=== PATIENT | male | born 1950 | race Caucasian/White ===

== ENCOUNTER → 2016-12-25 | Outpatient (REF) | payer MEDICARE, OTHER ==
[~2016-12-25] MED LIST: /MOXI40TA PO; /TIOT18INH INH; /WARF5TA OR; AMBI10TA OR; ASPI325T OR; ASPI81TA83 OR; ATROVENT0.02% INH; CENTRUM SILVER PO; CRES20TA OR; IRONTAB3 PO; LOPR50TA OR; OMEP20TA7 OR; POTA75TA PO; PRED20TA OR; VENTAER INH; VICO5TAB OR
[2016-12-25 19:46] LABS: IMMUNOGLOBULIN A 84.7 MG/DL (70-400); IMMUNOGLOBULIN G 772 MG/DL (681-1648); IMMUNOGLOBULIN M 29.9 MG/DL (40-230); TOTAL PROTEIN 6.5 GM/DL (6.4-8.2)
[2016-12-25 19:59] LABS: REASON FOR REVIEW COMPREHENSIVE REVIEW
[2016-12-28 00:06] LABS: BETA 2 MICROGLOBULIN 3.2 mg/L (0.6-2.4); FREE KAPPA LIGHT CHAINS SERUM 30.1 mg/L (3.3-19.4); FREE LAMBDA LIGHT CHAINS SERUM 20.6 mg/L (5.7-26.3); KAPPA/LAMBDA RATIO SERUM 1.46 (0.26-1.65)
[2016-12-30 13:36] LABS: ALBUMIN % 50.1 % (55.8-66.1); GAMMA GLOBULIN % 11.4 % (11.1-18.8)
[2016-12-30 13:37] LABS: ALBUMIN 3.26 GM/DL (3.29-5.55)
== END ==
LOC: M LAB REF 17:34
PROVIDERS: ATTEND Internal Medicine Medical Oncology
DX: C83.30 Diffuse large B-cell lymphoma, unspecified site (principal)

== ENCOUNTER → 2017-01-06 | Outpatient (CLI) | payer MEDICARE, OTHER ==
[~2017-01-06] MED LIST changes: +GASTROGRAFIN SOLUTION 30ML (Q9963) As Ordered ONE; +ISOVUE-370 76% 100ML VIAL (Q9967) As Ordered ONE
== END ==
LOC: M RAD 12:27
PROVIDERS: ATTEND Internal Medicine Medical Oncology
DX: C85.10 Unspecified B-cell lymphoma, unspecified site (principal); Z53.9 Procedure and treatment not carried out, unspecified reason

== ENCOUNTER → 2017-01-14 | Outpatient (CLI) | payer MEDICARE, OTHER ==
--- NOTE | 2017-01-14 12:39 | REP ---
CT of the chest with IV contrast: Comparison 10/16/2010. On the prior study. There were areas of consolidation in the right upper lobe and in the lower lobes bilaterally. These have resolved. However, on the study today there is a mass anteriorly in the right lower lobe extending to the right hilus, not present previously, measuring 5 cm in diameter. There are small bilateral pleural effusions. These were also present previously. There is a new focal pleural-based ground-glass density posteriorly in the right upper lobe on image 41 measuring 17 mm, not present previously. The pleural thickening identified in the lung apices previously has increased bilaterally. There are multiple mediastinal nodes, all increased in size from the prior study. The largest increases in the subcarinal noah mass which today measures 3 cm short axis (previously 1.4 cm). There is bilateral hilar adenopathy. This has increased from the prior study. There are bilateral axillary lymph nodes, however, these do not appear enlarged. The thoracic aorta is unremarkable. Cardiac size is normal. There is no pericardial effusion. Impression: There is a new right lower lobe lung mass. There is a new ground glass nodule in the right lung. The previous consolidations in the right upper lobe and bilateral lower lobes have resolved. There are small bilateral pleural effusions. These were also present previously. There is significantly increased adenopathy in mediastinal, subcarinal and bilateral hilar nodes as an interval change. The pleural thickening in the lung apices has increased bilaterally. There are no lytic, blastic or destructive skeletal changes. There are sternotomy wires, unchanged. Signed by Josias Atkins MD 01/14/2017 12:29 P
--- NOTE | 2017-01-14 12:47 | REP ---
CT of the abdomen pelvis without and with IV contrast: Comparison is 04/01/2010. The liver and spleen are normal size, homogeneous and unchanged. The pancreas is normal size and unremarkable and unchanged. There is a small left adrenal adenoma. This is unchanged. Right adrenal is unremarkable. The the kidneys are unremarkable except for renal cortical cysts. These are not significantly changed. There is no abdominal aortic aneurysm that have significantly increased in size today measuring 4.8 cm in diameter. This previously measured 3.1 cm in diameter. There is no periaortic hematoma. The bowel and mesentery are unremarkable. No mesenteric adenopathy is identified. Pelvis: There is no adenopathy or ascites. The bladder is unremarkable. There is sigmoid colon diverticulosis without diverticulitis. There are no lytic, blastic or destructive skeletal changes. Impression: There is no adenopathy. Liver and spleen are normal size. There is a stable left adrenal small adenoma. The abdominal aortic aneurysm has significantly increased, today measuring 4.8 cm in diameter. There is no periaortic hematoma. No periaortic adenopathy. There is no ascites. There is sigmoid colon diverticulosis without diverticulitis. Signed by Josias Atkins MD 01/14/2017 12:39 P
== END ==
LOC: M RAD 10:39
PROVIDERS: ATTEND Internal Medicine Medical Oncology
DX: C85.12 Unspecified B-cell lymphoma, intrathoracic lymph nodes (principal); R53.83 Other fatigue; F50.00 Anorexia nervosa, unspecified
CPT/HCPCS: 71260; 74178; Q9963; Q9967

== ENCOUNTER → 2017-01-21 | Outpatient (REF) | payer MEDICARE, OTHER ==
[~2017-01-21] MED LIST changes: -GASTROGRAFIN SOLUTION 30ML (Q9963) As Ordered ONE; -ISOVUE-370 76% 100ML VIAL (Q9967) As Ordered ONE
[2017-01-21 17:41] LABS: INR 1.03
== END ==
LOC: M LAB REF 16:35
PROVIDERS: ATTEND Internal Medicine Medical Oncology
DX: C88.4 Extranodal marginal zone B-cell lymphoma of mucosa-associated lymphoid tissue [MALT-lymphoma] (principal); Z79.01 Long term (current) use of anticoagulants

== ENCOUNTER → 2017-02-10 | Outpatient (CLI) | payer MEDICARE, OTHER ==
[~2017-02-10] MED LIST changes: -/MOXI40TA PO; -/TIOT18INH INH; -/WARF5TA OR; -AMBI10TA OR; -ASPI325T OR; -ASPI81TA83 OR; -ATROVENT0.02% INH; -CENTRUM SILVER PO; -CRES20TA OR; -IRONTAB3 PO; +LIDOCAINE 1% MDV 20ML VIAL As Ordered; -LOPR50TA OR; -OMEP20TA7 OR; -POTA75TA PO; -PRED20TA OR; -VENTAER INH; -VICO5TAB OR
== END ==
LOC: M RADPRO 07:55
DX: C34.31 Malignant neoplasm of lower lobe, right bronchus or lung (principal); Z79.899 Other long term (current) drug therapy; I95.1 Orthostatic hypotension; I25.2 Old myocardial infarction; Z86.73 Personal history of transient ischemic attack (TIA), and cerebral infarction without residual deficits
CPT/HCPCS: 32405

== ENCOUNTER → 2017-02-10 | Outpatient (REF) | payer MEDICARE, OTHER | LOC: M LAB REF 09:42 | DX: C34.90 Malignant neoplasm of unspecified part of unspecified bronchus or lung (principal) | CPT/HCPCS: 88300 ==

== ENCOUNTER → 2017-02-25 | Outpatient (CLI) | payer MEDICARE, OTHER | LOC: M PLARAD 09:42 | DX: C34.90 Malignant neoplasm of unspecified part of unspecified bronchus or lung (principal); C88.4 Extranodal marginal zone B-cell lymphoma of mucosa-associated lymphoid tissue [MALT-lymphoma]; R53.83 Other fatigue; F50.00 Anorexia nervosa, unspecified | CPT/HCPCS: 78815 ==

== ENCOUNTER 2017-12-15 13:00 | Emergency (ER) | payer MEDICARE, OTHER ==
[2017-12-15] MEDS: MORPHINE 4 MG/ML 1ML VIAL/SYRINGE (J2270) IV ×2 (15:58)
== END 2017-12-15 17:20 | disposition home or self-care (01) ==
LOC: M ED 13:00
DX: M54.9 Dorsalgia, unspecified (principal); R00.0 Tachycardia, unspecified; Z91.81 History of falling; C34.90 Malignant neoplasm of unspecified part of unspecified bronchus or lung; C85.90 Non-Hodgkin lymphoma, unspecified, unspecified site; I71.4 Abdominal aortic aneurysm, without rupture; I10 Essential (primary) hypertension; I25.2 Old myocardial infarction; J44.9 Chronic obstructive pulmonary disease, unspecified; Z87.891 Personal history of nicotine dependence; Z51.5 Encounter for palliative care
CPT/HCPCS: J2270